=== PATIENT | female | born 1980 | race Caucasian/White ===

== ENCOUNTER → 2020-04-27 12:17 | Outpatient (BNVA) | payer OTHER, SELFPAY | PROVIDERS: Family Provider Family Medicine; Visit Provider Nurse Practitioner | DX: Z11.59 Encounter for screening for other viral diseases (principal) | CPT/HCPCS: 87635 ==

== ENCOUNTER 2020-05-29 08:38 | Outpatient (CLI) | payer OTHER, SELFPAY ==
--- NOTE | 2020-05-29 10:00 | NM_ITS ---
WS: [id number] NUCLEAR MEDICINE HIDA SCAN CLINICAL INFORMATION: R10.13 - Epigastric pain TECHNIQUE: Following intravenous administration of mCi of technetium 99m mebrofenin, images of the ab domen were obtained over the course of 60 minutes. Next, gallbladder ejection fraction was determined by obtaining preprandial and one-hour postprandial images of the gallbladder following oral ingestio n of Ensure. COMPARISON: None. FINDINGS: Mild hepatomegaly. Normal hepatic uptake at 5 minutes. Gallbladder is visualized at 15 minutes. No ev idence of acute cholecystitis. Normal common bile duct and small bowel activity. No evidence of silvino docholithiasis. Gallbladder ejection fraction 52% within normal limits. No evidence of chronic cholecystitis. NM/NM hepatobiliary w phar* [id number] IMPRESSION: 1. No evidence of acute or chronic cholecystitis. 2. Gallbladder ejection fraction 52% within normal limits.
== END 2020-05-29 08:39 | disposition home or self-care (01) ==
LOC: RAD 08:42
PROVIDERS: PCP Internal Medicine; Visit Provider Surgery
DX: R10.13 Epigastric pain (principal)
CPT/HCPCS: 78227; A9537

== ENCOUNTER 2020-10-02 07:34 | Outpatient (CLI) | payer OTHER, SELFPAY ==
--- NOTE | 2020-10-02 07:45 | XR_ITS ---
WS: [id number] XR KUB [id number] REASON FOR EXAM: N20.2 - Calculus of kidney with calculus of ureter FINDINGS: Multiple small intrarenal calculi bilaterally. The largest of these intrarenal calculi overlies the l ower pole of the left kidney and on the previous examination of 09/21/2017 it measured 3 mm. At this ti me it measures 6 mm. Otherwise no significant interval change is identified. No urinary tract calculi along the course of the ureters or overlying the bladder. Normal bowel gas pattern. No free air or retroperitoneal air. No mass identified. XR/XR KUB [id number] IMPRESSION: Multiple small intrarenal calculi with interval enlargement of the dominant lef t lower pole calculus.
== END 2020-10-02 07:35 | disposition home or self-care (01) ==
LOC: RAD 07:38
PROVIDERS: PCP Internal Medicine; Visit Provider Urology
DX: N20.2 Calculus of kidney with calculus of ureter (principal)
CPT/HCPCS: 74018; 81003

== ENCOUNTER 2020-10-17 10:00 | Outpatient (CLI) | payer OTHER, SELFPAY ==
--- NOTE | 2020-10-17 10:00 | XR_ITS ---
WS: [id number] KUB, AP view, 10/17/2020 Clinical Data: STONE Comparison: KUB, 10/02/2020. Findings: The probable left renal calcification has not changed. The material obscures detail over the right ki dney and most of the left kidney. There are no calcifications in the true pelvis. XR/XR KUB 24775 Impression: No change in probable left renal calcification.
== END 2020-10-17 10:01 | disposition home or self-care (01) ==
LOC: RAD 10:04
PROVIDERS: PCP Internal Medicine; Visit Provider Urology
DX: N20.0 Calculus of kidney (principal)
CPT/HCPCS: 74018; 81003

== ENCOUNTER 2020-10-29 07:09 | Outpatient (CLI) | payer OTHER, SELFPAY ==
--- NOTE | 2020-10-29 07:15 | XR_ITS ---
WS: [id number] KUB, AP view, 10/29/2020 Clinical Data: N20.0 - Calculus of kidney Comparison: KUB, 10/17/2020. Findings: No abnormal intraabdominal masses or calcifications are seen. There is no dilatated small bowel or ev idence of obstruction. There is a calcification overlying the left kidney unchanged. The bladder is full. Fecal material in the colon obscures detail over the right kidney. XR/XR KUB [id number] Impression: No change in probable left renal calcification.
--- NOTE | 2020-10-29 09:09 | CT_ITS ---
WS: [id number] CT ABDOMEN PELVIS TECHNIQUE: Noncontrast CT of the abdomen and pelvis with coronal and sagittal reformatted images. CLINICAL INFORMATION: STONE COMPARISON: CT November 2015 DLP: 1161.[address] scans at [facility] use at least one of these dose optimization techniques: automat ed exposure control; mA and/or kV adjustment per patient size (includes targeted exams where dose is matched to clinical indication); or iterative reconstruction. FINDINGS: Prominent left extrarenal pelvis. No obstructing left renal or ureteral calculi. Small bilateral nono bstructing calyceal tip calculi. No hydronephrosis right kidney. Noncontrast liver is normal. Prior cholecystectomy. Lung bases are well aerated. Postoperative change s bilateral breast implants. Noncontrast spleen is normal. Normal GE junction. Normal noncontrast rosales creas. Normal caliber abdominal aorta. No abdominal or pelvic lymphadenopathy. No inguinal lymphadeno franky. Low-attenuation right ovarian cyst measuring 1.6 x 1.3 CM. Normal sigmoid colon. No evidence of high- grade small or large bowel obstruction. Small fat-containing umbilical hernia Normal lumbar spine. CT/CT kidney stone [id number] IMPRESSION: 1. No obstructing renal or ureteral calculi. No hydronephrosis in either kidne y. 2. Bilateral nonobstructing calyceal tip calculi. 3. Right ovarian cyst measuring 1.6 x 1.3 CM. No free fluid in the cul-de-sac. 4. No other significant findings.
== END 2020-10-29 07:10 | disposition home or self-care (01) ==
PROVIDERS: PCP Internal Medicine; Visit Provider Urology
DX: N20.0 Calculus of kidney (principal); N83.201 Unspecified ovarian cyst, right side
CPT/HCPCS: 74018; 74176; 81003

== ENCOUNTER → 2021-11-29 11:49 | Outpatient (BNVA) | payer OTHER, SELFPAY | PROVIDERS: PCP Family Medicine; Visit Provider Family Medicine | DX: N39.0 Urinary tract infection, site not specified (principal) | CPT/HCPCS: 81000; 87086 ==

== ENCOUNTER 2022-12-29 13:18 | Outpatient (CLI) | payer OTHER, SELFPAY ==
--- NOTE | 2022-12-29 13:28 | US_ITS ---
WS: [id number] US transvaginal [id number] HISTORY: R PELVIC PAIN/UTERINE FIBROIDS COMPARISON: None available. Uterus: 7.8 cm x 6.1 cm x 4.4 cm. Normal size anteverted uterus. No fibroid or mass. No fibroid is identified on today's exam. Endometrium: 1.3 cm. Endometrium is top normal size. No increased vascularity. Right ovary: 3.6 cm x 4.2 cm x 3.5 cm. Normal size and vascularity, no cystic or solid masses. RIGHT ovarian follicle measures 2.9 x 2.2 x 2.6 cm. Left ovary: LEFT oophorectomy. No adnexal mass. No free fluid in the cul-de-sac. US/US transvaginal [id number] IMPRESSION: 1. Endometrium measures top normal size. No mass. 2. Prior LEFT oophorectomy. 3. Normal uterus. No fibroid identified on today's exam.
== END 2022-12-29 13:19 | disposition home or self-care (01) ==
PROVIDERS: PCP Family Medicine; Visit Provider Family Medicine
DX: R10.2 Pelvic and perineal pain (principal); D25.9 Leiomyoma of uterus, unspecified
CPT/HCPCS: 76830

== ENCOUNTER → 2023-01-17 11:08 | Outpatient (BNVA) | payer OTHER, SELFPAY | PROVIDERS: PCP Family Medicine; Visit Provider Obstetrics & Gynecology | DX: N97.9 Female infertility, unspecified (principal) | CPT/HCPCS: 82670; 83001; 83520 ==

== ENCOUNTER 2024-10-01 08:25 | Outpatient (CLI) | payer OTHER, SELFPAY ==
--- NOTE | 2024-10-01 08:33 | MM_ITS ---
WS: [id number] BILATERAL SCREENING DIGITAL BREAST MAMMOGRAPHY WITH BETH DISPLACEMENT VIEWS. CAD PERFORMED. HISTORY: SCREENING COMPARISON: None available. Bilateral craniocaudal and mediolateral oblique views are performed with tomosynthesis and SM. Beth displacement views in CC and MLO projection also performed. Breasts composition: The breasts are heterogeneously dense, which may obscure small masses. Retropectoral implant is intact. No collapse or extravasation. Focal asymmetry in the superior LEFT breast seen on the implant displacement view only. Asymmetry measures approximately 9 mm and is not seen on the CC projection. Recommend additional views. No suspicious grouping of calcifications. MM/MM scr BI tomosynthesis [id number] IMPRESSION: BI-RADS: 0 - Incomplete: Need additional imaging evaluation FOLLOW-UP: Need Additional Imaging LEFT breast: Spot compression views (implant displacement MLO). True ML. Ultras ound to follow if abnormality persists.
== END 2024-10-01 08:26 | disposition home or self-care (01) ==
LOC: RAD 08:27
PROVIDERS: PCP Family Medicine; Visit Provider Family Medicine
DX: Z12.31 Encounter for screening mammogram for malignant neoplasm of breast (principal); R92.333 Mammographic heterogeneous density, bilateral breasts; Z98.82 Breast implant status; N64.89 Other specified disorders of breast
CPT/HCPCS: 77063; 77067

== ENCOUNTER 2024-10-17 08:13 | Emergency (ER) | payer OTHER, SELFPAY ==
[2024-10-17 08:53] VITALS: PULSE 76; RESP 20; TEMP 37.2; O2SAT 98
--- NOTE | 2024-10-17 09:05 | XRR_ITS ---
PROCEDURE INFORMATION: Exam: XR Left Clavicle, Complete Exam date and time: 10/17/2024 8:08 AM Age: 44 years old Clinical indication: Pain; Other: Clavicle; Additional info: Pain, swelling TECHNIQUE: Imaging protocol: Radiologic exam of the left clavicle. Complete exam. Views: Any number of views. COMPARISON: CT cervical spin wo con* [id number] 01/08/2019 1:06 PM FINDINGS: Bones/joints: No acute fracture or dislocation. Joint spaces are preserved. Soft tissues: Normal. XR/[place] [id number] IMPRESSION: No acute fracture or dislocation.
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
== END 2024-10-17 10:15 | disposition home or self-care (01) ==
PROVIDERS: Emergency Provider Emergency Medicine; PCP Family Medicine
DX: M25.512 Pain in left shoulder (principal); I10 Essential (primary) hypertension; Z85.43 Personal history of malignant neoplasm of ovary
CPT/HCPCS: 73000; 99283

== ENCOUNTER 2024-11-19 07:45 | Outpatient (CLI) | payer OTHER, SELFPAY ==
--- NOTE | 2024-11-19 07:48 | MM_ITS ---
WS: [id number] ADDITIONAL VIEWS LEFT MAMMOGRAM WITH DIGITAL BREAST TOMOSYNTHESIS, implant displacement views. LEFT breast ultrasound, limited HISTORY: ABNORMAL MAMMOGRAM,LEFT BREAST COMPARISON: 10/01/2024 Spot compression views LEFT breast in MLO with implant displacement projections and true ML submitted with digital breast tomosynthesis and SM. Breast composition: The breasts are heterogeneously dense, which may obscure small masses. Asymmetry noted on the lateral projection on 10/01/2024 nearly completely resolves with additional imaging. There is an area of very slight increased density seen on the LEFT MLO projection at a middle depth. Ultrasound will be performed of the upper outer quadrant with attention to 12:00 more specifically. LEFT breast ultrasound, limited. There is a small cyst versus duct at 3:00 measuring 3 mm. There is no abnormality at 12:00. Very dense fibroglandular tissue. MM/MM diag LT tomosynthesis [id number] IMPRESSION: BI-RADS: 2 - Benign FOLLOW UP: 1 Year Follow-up Return to annual screening mammography. Previously described asymmetry in the L EFT breast did not persist with additional imaging.
== END 2024-11-19 07:46 | disposition home or self-care (01) ==
PROVIDERS: PCP Family Medicine; Visit Provider Internal Medicine
DX: R92.8 Other abnormal and inconclusive findings on diagnostic imaging of breast (principal); R92.333 Mammographic heterogeneous density, bilateral breasts; N63.25 Unspecified lump in the left breast, overlapping quadrants; R92.322 Mammographic fibroglandular density, left breast
CPT/HCPCS: 76642; 77061; G0279